=== PATIENT | female | born 1985 | race Caucasian/White ===

== ENCOUNTER 2019-02-13 13:18 | Emergency (ER) | payer BC ==
[~2019-02-13] VITALS: Ht 167.6 cm; Wt 59.0 kg
[2019-02-13] MEDS ORDERED: CLARITIN10 M2 PO (13:38)
[2019-02-13 13:51] LABS: ABSOLUTE NEUTROPHILS 10.2 thou/uL (1.4-8.2); EOSINOPHILS 0.3 % (0.0-3.0); HEMATOCRIT 47.5 % (37.0-47.0); HEMOGLOBIN 16.1 gm/dL (12.0-15.0); LYMPHOCYTES 5.5 % (24.0-44.0); MCHC 33.8 g/dL (28.0-37.0); MCV 91.7 fL (80.0-100.0); PLATELET COUNT 249 thou/uL (150-400); POLYS 87.2 % (36.0-66.0); RBC 5.18 mil/uL (4.20-5.00); RDW 13.1 % (10.5-14.5); WBC 11.7 thou/uL (4.0-11.0)
[2019-02-13 14:10] LABS: CALCIUM 9.1 mg/dL (8.5-10.1); CREATININE 0.9 mg/dL (0.6-1.0); POTASSIUM 3.4 mmol/L (3.5-5.1)
[2019-02-13 14:14] LABS: ALBUMIN 4.1 g/dL (3.4-5.0); TOTAL BILIRUBIN 0.5 mg/dL (<0.1-1.0); TOTAL PROTEIN 7.8 g/dL (6.4-8.2)
[2019-02-13 14:42] LABS: URINE BILIRUBIN NEGATIVE (Negative); URINE BLOOD NEGATIVE (Negative); URINE CLARITY CLEAR; URINE COLOR YELLOW; URINE GLUCOSE-RANDOM* NEGATIVE (Negative); URINE KETONES NEGATIVE (Negative); URINE LEUKOCYTES-REFLEX NEGATIVE (Negative); URINE NITRITE-REFLEX NEGATIVE (Negative); URINE PROTEIN (DIPSTICK) NEGATIVE (Negative); URINE SPECIFIC GRAVITY 1.015 (1.005-1.035); URINE UROBILINOGEN 0.2 E.U./dl (0.2-1.0)
[2019-02-13] MEDS ORDERED: BACTRIM DS TAB1 EACH PO (14:55)
[2019-02-13] MEDS ORDERED: NAPROSYN500 MG PO (14:55)
[2019-02-13] MEDS ORDERED: NORCO 7.5-3251 EACH PO (14:55)
[2019-02-13 15:40] VITALS: BP 136/78
== END 2019-02-13 15:42 | disposition home or self-care (01) ==
LOC: ER 13:18
PROVIDERS: Physician Assistant
DX: N75.0 Cyst of Bartholin's gland (principal); R10.2 Pelvic and perineal pain; Z88.1 Allergy status to other antibiotic agents